=== PATIENT | female | born 1980 | race Caucasian/White ===

== ENCOUNTER 2019-05-22 19:59 | Emergency (ER) | payer BC ==
[2019-05-22] MEDS ORDERED: LIDOCAINE 2% 10 ML MDV SUBQ STA (20:33)
--- NOTE | 2019-05-22 20:36 | ED Physician Documentation ---
History of Present Illness - Stated complaint Stated Complaint: FINGER INJURY - Chief complaint Chief Complaint: Wound - History obtained from History obtained from: Patient, Family - History of Present Illness Timing: How many days ago (2-3) Pain level max: 5 Pain level now: 4 Improved by: nothing Worsened by: palpation - Additonal information Additional information: R index finger swelling. pain. around the nailbed. Review of Systems Constitutional: denies: Fever : denies: Now EGA Skin: denies: Rash PD PAST MEDICAL HISTORY - Past Medical History Past Medical History: No - Past Surgical History Past Surgical History: Yes Ortho: Other /UNPAID INTERN: Other - Present Medications Home Medications: Ambulatory Orders Medication Instructions Recorded Confirmed Cephalexin [Keflex] 500 mg PO Q6H #28 capsule 05/22/19 - Allergies Allergies/Adverse Reactions: Allergies Allergy/AdvReac Type Severity Reaction Status Date / Time acetaminophen [From Vicodin] Allergy Respiratory Verified 05/22/19 20:05 hydrocodone [From Vicodin] Allergy Respiratory Verified 05/22/19 20:05 morphine Allergy Respiratory Verified 05/22/19 20:06 - Social History Does the pt smoke?: Yes Smoking Status: Current every day smoker Does the pt drink ETOH?: Yes Does the pt have substance abuse?: No - Immunizations Immunizations are current?: Yes - POLST Patient has POLST: No PD ED PE NORMAL - Vitals Vital signs reviewed: Yes - General General: Alert and oriented X 3, No acute distress - HEENT HEENT: Moist mucous membranes - Neck Neck: Supple, no meningeal sign - Derm Derm: Warm and dry - Extremities Extremities: Other (r index finger - NVI. swelling and purulence to the nail fold. ) - Neuro Neuro: Alert and oriented X 3 Results - Vitals Vitals: Vital Signs - 24 hr 05/22/19 05/22/19 05/22/19 20:03 21:16 21:24 Temperature 36.2 C L 36.9 C 36.6 C Heart Rate 102 H 91 88 Respiratory 16 16 16 Rate Blood Pressure 131/65 H 137/84 H 130/86 H O2 Saturation 98 99 100 Oxygen O2 Source Room air PD MEDICAL DECISION MAKING - ED course Complexity details: considered differential, d/w patient, d/w family ED course: Digital block performed performed with 2% lidocaine. Excellent anesthesia achieved. #11 blade used to elevate the nail fold. Purulence removed. Tolerated well. Will place on abx. will follow up with PCP. Warnings of infection given at [facility]. Patient counseled regarding signs and symptoms for which I believe and urgent re-evaluation would be necessary. Patient with good understanding of and agreement to plan and is comfortable going home at this time This document was made in part using voice recognition software. While efforts are made to proofread this document, sound alike and grammatical errors may occur. Departure - Departure Disposition: 01 Home, Self Care Clinical Impression: Paronychia Condition: Good Instructions: ED Fingernail Infec Follow-Up: your,doctor in 1 week [Other] Prescriptions: Cephalexin [Keflex] 500 mg PO Q6H #28 capsule Comments: Take all antibiotics until gone. Return if you worsen. Soak the finger in warm water 2-3 times a day to help it continue to drain. Discharge Date/Time: 05/22/19 21:24
[2019-05-22] MEDS ORDERED: BACITRACIN ZINC OINT 14 GM TOP STA (21:04)
[2019-05-22] MEDS ORDERED: cephALEXin 250 MG CAPSULE PO STA (21:04)
[2019-05-22 21:26] VITALS: BP 130/86
== END 2019-05-22 21:24 | disposition home or self-care (01) ==
LOC: ED 19:59
DX: L03.011 Cellulitis of right finger (principal); F17.200 Nicotine dependence, unspecified, uncomplicated
CPT/HCPCS: 99282; A9270; 11765